=== PATIENT | female | born 1970 | race Caucasian/White ===

== ENCOUNTER → 2019-01-18 | Outpatient (CLI) | payer BC ==
[~2019-01-18] MED LIST: AMIT10TA6 PO; CYCL5TAB11; IRON PILLS; MDR10T PO; MOTRIN 600MG PO; NAPR-248 PO; OXYC-12 PO
--- NOTE | 2019-01-22 14:25 | Diagnostic Imaging Report ---
Patient History: RIB PAIN. Technique: 2 views of the chest and 3 views of the left ribs are obtained Comparison: None FINDINGS: The lung volumes are normal. No focal consolidation is seen. No large pleural effusion or pneumothorax is seen. The cardiomediastinal silhouette is normal in size and contour. No acute osseous abnormality is seen. No acute displaced left rib fractures are seen. IMPRESSION: 1. No acute pleuroparenchymal process. 2. No acute displaced left rib fractures. Dictated by: Dictated on workstation # [id number]
== END ==
LOC: RAD 14:08
DX: R07.81 Pleurodynia (principal)
CPT/HCPCS: 71046; 71100

== ENCOUNTER → 2020-01-04 | Outpatient (CLI) | payer BC ==
--- NOTE | 2020-01-04 11:36 | Diagnostic Imaging Report ---
EXAMINATION: Digital mammogram INDICATION: Bilateral screening This study was compared to the prior exam of 03/23/2016. At this time there are no current complaints. CAD is utilized. The current study was also evaluated with a Computer Aided Detection (CAD) system. There are scattered fibroglandular densities in both breasts which could obscure a lesion. The fibroglandular densities are not as conspicuous on the prior exam and there does appear to have been some fatty involution of the breast tissue in the interval since the prior study. On the craniocaudad view of the left breast the midportion of breast there is a small area of increased density. There is no corresponding abnormality seen on the MLO view and this density does not seem to persist on the tomographic images. I suspect it is secondary to fibroglandular tissue alone. IMPRESSION: 1. There is no evidence of malignancy. 2. The patient should have her annual bilateral screening mammogram on schedule in December 2020. ACR BI-RADS Category 1: Negative. Result letter will be mailed to the patient. Note: At least 10% of breast cancer is not imaged by mammography. Dictated by: Dictated on workstation # [id number]
== END ==
LOC: RAD 09:00
PROVIDERS: ATTEND Surgery
DX: Z12.31 Encounter for screening mammogram for malignant neoplasm of breast (principal)
CPT/HCPCS: 77063; 77067

== ENCOUNTER → 2021-05-06 | Outpatient (CLI) | payer BC ==
--- NOTE | 2021-05-06 17:00 | Diagnostic Imaging Report ---
Indication: Chest pain PA and lateral chest Heart size and pulmonary vascularity are normal. Lungs are clear. There are no effusions or pneumothoraces. IMPRESSION: Negative chest Dictated by: Dictated on workstation # [id number]
== END ==
LOC: RAD 16:33
DX: R07.9 Chest pain, unspecified (principal)
CPT/HCPCS: 71046

== ENCOUNTER → 2021-11-27 | Outpatient (CLI) | payer BC | LOC: CARD 09:51 | PROVIDERS: ATTEND Physician Assistant | DX: I35.0 Nonrheumatic aortic (valve) stenosis (principal); I10 Essential (primary) hypertension; I49.9 Cardiac arrhythmia, unspecified | CPT/HCPCS: 93225; 93226; 93306 ==

== ENCOUNTER → 2021-12-21 | Outpatient (CLI) | payer BC ==
[~2021-12-21] MED LIST changes: +CATHETER FLUSH 10 ML SYR IVP PRN
[2021-12-21 09:22] VITALS: BP 160/63
--- NOTE | 2021-12-21 11:58 | Cardiology Stress Test Report ---
Stress Test Report Date of Procedure/Referring: Date of Procedure: Dec 21, 2021 PCP Sal Hodges MD Admitting Physician Admitting Physician: Attending Physician: Roxana Neely Indications: HTN Baseline Heart Rate: 74 Baseline Blood Pressure: Blood Pressure Systolic: 160 Blood Pressure Diastolic: 63 Vital Signs Date Time Temp Pulse Resp B/P (MAP) Pulse Ox O2 Delivery O2 Flow Rate FiO2 12/21/21 09:22 74 16 160/63 (95) 98 Room Air Baseline Vital Signs Vital Signs Date Time Temp Pulse Resp B/P (MAP) Pulse Ox O2 Delivery O2 Flow Rate FiO2 12/21/21 09:22 74 16 160/63 (95) 98 Room Air Baseline EKG: Baseline EKG: NSR Summary: After explaining the procedure and details to the patient, she signed the consent and was brought to the stress nuclear laboratory. Patient exercised on standard Praveen protocol, EKG, heart rate and blood pressure were monitored continuously, resting and stress doses of radio tracer were injected, imaging was acquired and reviewed in the short axis, horizontal long axis and vertical long axis views Patient was able to exercise for a total of [ ] minutes on Praveen protocol, METs [ ] Maximum heart rate [ ] Maximum blood pressure [ ] Stress EKG, Minimal nondiagnostic changes Recovery EKG, Return to baseline TID: 0.95 SSS: 2 SDS: 2 EF: 65 Conclusion: 1. Patient tolerated Lexiscan well 2. No significant ischemia or infarction on SPECT images 3. Normal left ventricular size, ejection fraction 65% Copy Copies To 1: SAL HODGES MD, BASHAR J MD Dec 21, 2021 11:58
== END ==
LOC: CARD 08:03
PROVIDERS: ATTEND Physician Assistant
DX: R07.9 Chest pain, unspecified (principal)
CPT/HCPCS: 78452; 93017; A9502